=== PATIENT | female | born 1980 | race Two or more races ===

== ENCOUNTER 2024-01-03 20:10 | Emergency (ER) | payer SELFPAY ==
[2024-01-03 20:18] VITALS: BP 119/72; PULSE 76; RESP 18; TEMP 97.7; BMI 33.3
[2024-01-03] MEDS ORDERED: LIDOCAINE 4% PATCH TP ONE (20:43)
[2024-01-03] MEDS ORDERED: KETOROLAC TROMETHAMINE 15 MG/ML VIAL ONE (20:43)
[2024-01-03] MEDS: KETOROLAC TROMETHAMINE 15 MG/ML VIAL IM ONE (20:49)
[2024-01-03] MEDS: LIDOCAINE 5% TOPICAL PATCH TP ONE (20:49)
[2024-01-03 21:12] LABS: PH,URINE 6.5 (5.0-8.0); URINE APPEARANCE CLEAR; URINE BILIRUBIN NEGATIVE (NEGATIVE); URINE COLOR YELLOW; URINE GLUCOSE (UA) NEGATIVE (NEGATIVE); URINE KETONE NEGATIVE (NEGATIVE); URINE LEUK ESTERASE NEGATIVE (NEGATIVE); URINE NITRITE NEGATIVE (NEGATIVE); URINE PROTEIN NEGATIVE (NEGATIVE)
[2024-01-03 21:31] LABS: HCG,QUALITATIVE URINE NEGATIVE
[2024-01-03] MEDS ORDERED: LIDOCAINE PATCH REMOVAL MC SCH (22:00)
== END 2024-01-03 21:26 | disposition home or self-care (01) ==
LOC: JERFT 20:10
PROC: 3E0133Z Introduction of Anti-inflammatory into Subcutaneous Tissue, Percutaneous Approach (ICD-10-PCS; principal; 2024-01-03)
DX: M54.50 Low back pain, unspecified (principal)
CPT/HCPCS: 81003; 84703; 87086; 99284-25

== ENCOUNTER 2024-01-04 12:07 | Emergency (ER) | payer SELFPAY ==
[2024-01-04 12:44] VITALS: BP 125/79; PULSE 77; RESP 16; TEMP 97.9; BMI 33.3
[2024-01-04] MEDS ORDERED: predniSONE 20 MG TABLET (UD) ONE (13:13)
[2024-01-04] MEDS ORDERED: METHOCARBAMOL 500 MG TABLET ONE (13:13)
[2024-01-04] MEDS ORDERED: ACETAMINOPHEN 500 MG TABLET (FP) ONE (13:13)
[2024-01-04] MEDS: predniSONE 20 MG TABLET (UD) PO ONE (13:18)
[2024-01-04] MEDS: METHOCARBAMOL 500 MG TABLET PO ONE (13:18)
[2024-01-04] MEDS: ACETAMINOPHEN 500 MG TABLET (FP) PO ONE (13:18)
== END 2024-01-04 14:26 | disposition home or self-care (01) ==
LOC: JER 12:07
DX: M54.2 Cervicalgia (principal)
CPT/HCPCS: 99283-25